=== PATIENT | male | born 2000 | race Caucasian/White ===

== ENCOUNTER 2019-03-03 14:16 | Emergency (ER) | payer SELFPAY ==
[~2019-03-03] VITALS: Ht 185.4 cm; Wt 68.0 kg
--- OUTSIDE RECORDS SUMMARY | 2019-03-03 14:22 | XMS REPORT ---
Author Author CARMELO MELARA [facility] Address Unknown Care Team Providers Care Mechatronics Technologist Name Role Phone CARMELO MELARA Unavailable PROBLEMS Unknown Problems ALLERGIES No Known Allergies ENCOUNTERS Encounter Location Date Diagnosis [facility] [address] [id number] [phone] Jun, Dental examination Z01.20 [facility] [id number] [place] [id number] Apr, Dental examination Z01.20 [facility] [address] [id number] [id number] Apr, Dental examination Z01.20 [facility] [address] [id number] [id number] Mar, [facility] [address] [id number] [id number] Mar, Dental examination Z01.20 IMMUNIZATIONS No Known Immunizations SOCIAL HISTORY Never Assessed REASON FOR VISIT DEB PLAN OF CARE Activity Details Follow Up prn Reason:endo #10 VITAL SIGNS Blood pressure systolic 102 mmHg 2017-06-29 Blood pressure diastolic 56 mmHg 2017-06-29 MEDICATIONS Medication Instructions Dosage Frequency Start Date End Date Duration Status PreviDent 5000 Plus 1.1 % Dental 2 times a day as directed 12h Mar, Not-Taking PreviDent 5000 Plus 1.1 % as directed Mar, Not-Taking RESULTS No Results PROCEDURES Procedure Date Ordered Result Body Site LTD ORAL EVALUATION - PROBLEM FOCUS Jun 29, 2017 INTRAORL-PERIAPICAL 1 FILM [id number] Jun 29, 2017 INSTRUCTIONS MEDICATIONS ADMINISTERED No Known Medications
--- OUTSIDE RECORDS SUMMARY | 2019-03-03 14:22 | XMS REPORT ---
Author Author CARMELO MELARA [facility] Address Unknown Care Team Providers Care Wheel Of Fortune Dealer Name Role Phone CARMELO MELARA Unavailable PROBLEMS Unknown Problems ALLERGIES No Known Allergies ENCOUNTERS Encounter Location Date Diagnosis [facility] [address] [place] [id number] Jun, Dental examination Z01.20 [facility] [id number] [place] [phone] Apr, Dental examination Z01.20 [facility] [address] [place] [phone] Apr, Dental examination Z01.20 [facility] [id number] [phone] Mar, [facility] [id number] [phone] Mar, Dental examination Z01.20 IMMUNIZATIONS No Known Immunizations SOCIAL HISTORY Never Assessed REASON FOR VISIT FILLING PLAN OF CARE Activity Details Follow Up prn Reason:Fillings VITAL SIGNS MEDICATIONS Medication Instructions Dosage Frequency Start Date End Date Duration Status PreviDent 5000 Plus 1.1 % Dental 2 times a day as directed 12h Mar, Active PreviDent 5000 Plus 1.1 % as directed Mar, Active RESULTS No Results PROCEDURES Procedure Date Ordered Result Body Site RESIN COMPOS - 1 SURFACE POSTERIOR May 02, 2017 INSTRUCTIONS MEDICATIONS ADMINISTERED No Known Medications
--- OUTSIDE RECORDS SUMMARY | 2019-03-03 14:22 | XMS REPORT ---
Author Author KAVEH HILL Organization [facility] Address [address] [place] [address] Phone Unavailable Care Team Providers Care Asphalt Worker Name Role Phone KAVEH HILL Unavailable Unavailable PROBLEMS Unknown Problems ALLERGIES No Known Allergies ENCOUNTERS Encounter Location Date Diagnosis [facility] [address] [id number] [phone] Jun, Dental examination Z01.20 [facility] [id number] [place] [phone] Apr, Dental examination Z01.20 [facility] [id number] [place] [id number] Apr, Dental examination Z01.20 [facility] [address] [id number] [phone] Mar, [facility] [address] [id number] [phone] Mar, Dental examination Z01.20 IMMUNIZATIONS No Known Immunizations SOCIAL HISTORY Never Assessed REASON FOR VISIT [facility] PLAN OF CARE Activity Details Follow Up james Reason:restore VITAL SIGNS MEDICATIONS No Known Medications RESULTS No Results PROCEDURES Procedure Date Ordered Result Body Site COMP ORAL EVALUATION - NEW/EST PT Apr 06, 2017 INTRAORL-PERIAPICAL 1 FILM [id number] Apr 06, 2017 TOPICAL FLUORIDE VARNISH Apr 06, 2017 PROPHYLAXIS - ADULT Apr 06, 2017 INTRAORL-PERIAPICAL EA ADD FILM Apr 06, 2017 INTRAORL-PERIAPICAL EA ADD FILM Apr 06, 2017 PANORAMIC FILM SEE ALSO CODE [id number] Apr 06, 2017 BITEWINGS - FOUR FILMS Apr 06, 2017 INSTRUCTIONS MEDICATIONS ADMINISTERED No Known Medications
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
== END 2019-03-03 15:55 | disposition home or self-care (01) ==
LOC: ER FS 14:18
DX: S09.90XA Unspecified injury of head, initial encounter (principal); S00.33XA Contusion of nose, initial encounter; F17.210 Nicotine dependence, cigarettes, uncomplicated; V86.06XA Driver of dirt bike or motor/cross bike injured in traffic accident, initial encounter
CPT/HCPCS: 70450; 70486